=== PATIENT | male | born 2000 | race Caucasian/White ===

== ENCOUNTER 2018-05-11 16:07 | Emergency (ER) | payer OTHER ==
[2018-05-11 16:36] VITALS: BP 116/61
--- NOTE | 2018-05-11 17:11 | UC ---
Hand/Wrist HPI - HPI Summary HPI Summary: 18-year-old male comes in with a chief complaint of right hand pain. He punched a wall on May 07, 2018. He's had pain at the third MCP ever since then. It has improved some but because the pain continues and is here to get checked out. Pain is worse over the third MCP. It is worse with finger flexion and extension. Denies any weakness or numbness. Does have an abrasion over that area. No drainage or streaking. Denies any wrist pain. - History Of Current Complaint Chief Complaint: UCUpperExtremity Stated Complaint: RT HAND INJURY Time Seen by Provider: 05/11/18 17:02 Pain Intensity: 0 - Allergies/Home Medications Allergies/Adverse Reactions: Allergies Allergy/AdvReac Type Severity Reaction Status Date / Time No Known Allergies Allergy Verified 05/11/18 16:32 Home Medications: Home Medications NK [No Home Medications Reported] 05/11/18 [History Confirmed 05/11/18] PMH/Surg Hx/FS Hx/Imm Hx Previously Healthy: Yes - Surgical History Surgical History: None - Family History Known Family History: Positive: Non-Contributory - Social History Alcohol Use: Occasionally Substance Use Type: None Smoking Status (MU): Never Smoked Tobacco - Immunization History Most Recent Tetanus Shot: UTD Review of Systems All Other Systems Reviewed And Are Negative: Yes Constitutional: Positive: Negative Skin: Positive: Other - SEE HPI Eyes: Positive: Negative ENT: Positive: Negative Respiratory: Positive: Negative Cardiovascular: Positive: Negative Gastrointestinal: Positive: Negative Motor: Positive: Negative Neurovascular: Positive: Negative Musculoskeletal: Positive: Other: - SEE HPI Neurological: Positive: Negative Psychological: Positive: Negative Is Patient Immunocompromised?: No Physical Exam Triage Information Reviewed: Yes Appearance: Well-Appearing, No Pain Distress, Well-Nourished Vital Signs: Initial Vital Signs Temp 97.7 F 05/11/18 16:32 Pulse 72 05/11/18 16:32 Resp 16 05/11/18 16:32 BP 116/61 05/11/18 16:32 Pulse Ox 99 05/11/18 16:32 Vital Signs Reviewed: Yes Eye Exam: Normal Eyes: Positive: Conjunctiva Clear Neck exam: Normal Neck: Positive: Supple Respiratory: Positive: No respiratory distress Musculoskeletal: Positive: Other: - On the right hand there is a 5 mm eschar over the third MCP. There is some surrounding erythema there is no drainage is not hot to touch there is no streaking. Patient reports pain with third finger full flexion and full extension. He has full strength in flexion extension abduction and abduction. No sensation deficits. Normal capillary refill. He is tender to palpation over the right third MCP. Neurological Exam: Normal Neurological: Positive: Alert, Muscle Tone Normal Psychological Exam: Normal Psychological: Positive: Age Appropriate Behavior Skin: Positive: Other - ABRASION OVER RT 3RD MCP WITH SCAB. NO DRAINAGE OR STREAKING Hand/Wrist Course/Dx - Course Course Of Treatment: Patient Name: RONNY MELENDEZ Medical Record#: [id number]. Ordering Physician: Frandy Nicole MD Acct.#: [id number]. : 2000 Age: 18 Sex: M Location: [facility]. Exam Date: 1704 ADM Status: REG ER. Order Information: HAND - RIGHT MINIMUM 3 VIEWS. Accession Number: [id number]. CPT: 47386. Indication: Right hand pain. 4 views of the right hand demonstrates no fracture or dislocation. No other bone or joint. abnormality is identified. IMPRESSION: No fracture of the right hand is noted. . < Electronically signed by Caroline Ortega MD in [facility]> 05/11/18 [id number]. I discussed the x -ray with the patient. No fracture seen. Patient has good range of motion and strength with the finger. However he has more pain with complete flexion and complete extension. I let the patient know that if he does not improve completely he needs to follow-up with orthopedics. Otherwise be reevaluated here with any questions or concerns. - Differential Dx/Diagnosis Provider Diagnosis: Contusion of hand, right Discharge - Sign-Out/Discharge Documenting (check all that apply): Patient Departure All imaging exams completed and their final reports reviewed: Yes - Discharge Plan Condition: Stable Disposition: HOME Patient Education Materials: Hand Sprain (ED) Referrals: Ander Casas MD [Medical Doctor] - Additional Instructions: FOLLOW UP WITH DR CASAS, ORTHOPEDICS, IF NOT COMPLETELY IMPROVED. GET RECHECKED FOR ANY WORSENING OF YOUR CONDITION OR QUESTIONS OR CONCERNS. - Billing Disposition and Condition Condition: STABLE Disposition: Home
== END 2018-05-11 17:56 | disposition home or self-care (01) ==
LOC: UCCORT 16:07
DX: S60.221A Contusion of right hand, initial encounter (principal); W22.01XA Walked into wall, initial encounter; Y92.9 Unspecified place or not applicable
CPT/HCPCS: 99202; G0463